=== PATIENT | female | born 1965 | race American Indian/Alaskan Native ===

== ENCOUNTER 2021-05-08 13:39 | Outpatient (CLI) | payer OTHER ==
[2021-05-08] MEDS ORDERED: LIDOCAINE (4%) 40 MG/ML TOPICAL SOLN 50 ML BOTTLE TP ONE (13:43)
== END 2021-05-08 13:40 | disposition home or self-care (01) ==
LOC: WOUND 13:39
PROVIDERS: ATTEND Surgery
DX: R21 Rash and other nonspecific skin eruption (principal); B35.3 Tinea pedis; I11.0 Hypertensive heart disease with heart failure; I50.9 Heart failure, unspecified; Z98.51 Tubal ligation status; Z87.891 Personal history of nicotine dependence
CPT/HCPCS: 99205; G0463

== ENCOUNTER 2021-09-11 05:47 | Day surgery (SDC) | payer OTHER ==
[2021-09-11] MEDS ORDERED: ceFAZolin/Water 2 GM/20 ML 2 GM/20 ML SYRINGE IV NR (06:00)
[2021-09-11] MEDS ORDERED: SODIUM CHLORIDE 0.9% 1000 ML 1,000 ML ONE (06:23)
[2021-09-11] MEDS ORDERED: BACTERIOSTATIC SODIUM CHLORIDE 0.9% 30 ML VIAL INFILTRATI ONE (06:39)
[2021-09-11] MEDS ORDERED: SODIUM CHLORIDE 0.9% 100 ML ONE (07:10)
[2021-09-11] MEDS ORDERED: propofoL 200 MG/20 ML VIAL IV ONE (07:11)
[2021-09-11 07:12] LABS: Mean Corpuscular HGB Conc 29 % (30-34); Mean Corpuscular Volume 78 fl (79-97); Platelet Count 182 K/mm3 (140-440); Red Blood Count 4.45 M/mm3 (3.65-5.03); Red Cell Distribution Width 19.1 % (13.2-15.2)
[2021-09-11] MEDS ORDERED: BUPIVACAINE/PF (0.5%) 5 MG/1 ML 30 ML VIAL INFILTRATI ONE (07:14)
[2021-09-11] MEDS ORDERED: SODIUM CHLORIDE P/F VIAL 10 ML 0 ML ONE (07:14)
[2021-09-11] MEDS ORDERED: LIDOCAINE (1%) 10 MG/1 ML VIAL 20 ML MDV ONE (07:14)
[2021-09-11] MEDS ORDERED: HEPARIN 10,000 UNITS/10 ML VIAL ONE (07:14)
[2021-09-11] MEDS ORDERED: SODIUM CHLORIDE 0.9% 250ML 0 ML ONE (07:15)
[2021-09-11] MEDS ORDERED: rifAMPin 600 MG VIAL ONE (07:15)
[2021-09-11] MEDS ORDERED: SODIUM CHLORIDE 0.9% 500 ML 500 ML ONE (07:15)
[2021-09-11 07:17] LABS: Hematocrit 34.9 % (30.3-42.9)
[2021-09-11 07:29] LABS: Calcium 8.2 mg/dL (8.4-10.2)
[2021-09-11] MEDS ORDERED: HYDROmorphone 1 MG/1 ML INJ IV PRN ×2 (07:43)
--- NOTE | 2021-09-11 07:45 | Anesthesia Day of Surgery ---
Anesthesia Day of Surgery - Day of Surgery Patient Examined: Yes Patient H&P Reviewed: Yes Patient is NPO: Yes Beta Blockers: Yes
--- NOTE | 2021-09-11 07:49 | Anesthesia Consultation ---
Anesthesia Consult and Med Hx Date of service: 09/11/21 - Airway Anesthetic Teeth Evaluation: Chipped, Caps ROM Head & Neck: Adequate Mental/Hyoid Distance: Adequate Mallampati Class: Class II Intubation Access Assessment: Good - Pre-Operative Health Status ASA Pre-Surgery Classification: ASA4 Proposed Anesthetic Plan: General - Pulmonary Hx Smoking: Yes (STOPPED SMOKING 10 YEARS AGO) Hx Respiratory Symptoms: Yes (RVSP 67 mmHg) SOB: Yes - Cardiovascular System Hx Hypertension: Yes (Orthopnea; gets tired easily when walks) Hx Coronary Artery Disease: No ([id number] SNT normal; EF 31%) Hx Heart Attack/AMI: No (CHF; [id number] ECHO EF 35-40%) Hx Valvular Heart Disease: Yes (Severe MR and TR) - Central Nervous System Hx Psychiatric Problems: No - Gastrointestinal Hx Gastroesophageal Reflux Disease: Yes (Occasional dietary) - Endocrine Hx Renal Disease: Yes Hx End Stage Renal Disease: Yes (Last HD yesterday) - Hematic Hx Anemia: Yes (IRON INFUSIONS) - Other Systems Hx Alcohol Use: Yes Hx Cancer: No
[2021-09-11] MEDS ORDERED: ePHEDrine SULFATE 50 MG/1 ML INJ ONE ×2 (07:51→09:11)
[2021-09-11] MEDS: SODIUM CHLORIDE 0.9% 1000 ML 1,000 ML IV SCH (08:00)
[2021-09-11] MEDS ORDERED: MIDAZOLAM 2 MG/2 ML INJ ONE (08:07)
[2021-09-11] MEDS: SODIUM CHLORIDE 0.9% IRR 1,500 ML BOTTLE IR ONE (09:00)
[2021-09-11] MEDS: SODIUM CHLORIDE 0.9% IRR 500 ML BOTTLE IR ONE (09:00)
[2021-09-11] MEDS: BUPIVACAINE/PF (0.5%) 5 MG/1 ML 30 ML VIAL INFILTRATI ONE (09:00)
[2021-09-11] MEDS ORDERED: ONDANSETRON 4 MG/2 ML INJ IV PRN (09:00)
[2021-09-11] MEDS: HEPARIN 10,000 UNITS/10 ML VIAL IV ONE (09:00)
[2021-09-11] MEDS ORDERED: PHENYLEPHRINE/NS 1,000 MCG/10 ML SYRINGE (OR USE) IV ONE (09:02)
[2021-09-11] MEDS ORDERED: PHENYLEPHRINE 10 MG/1 ML INJ SDV ONE (09:02)
[2021-09-11] MEDS ORDERED: fentaNYL 100 MCG/2 ML INJ ONE (09:29)
[2021-09-11] MEDS ORDERED: ONDANSETRON 4 MG/2 ML INJ ONE (09:53)
--- NOTE | 2021-09-11 10:25 | Short Stay Summary ---
Short Stay Documentation Date of service: 09/11/21 Narrative H&P: See H&P - History H&P: obtained from office - Allergies and Medications Current Medications: Allergies Sulfa (Sulfonamide Antibiotics) Allergy (Severe, Verified 08/30/21 14:34) Swelling prednisone Adverse Reaction (Verified 09/11/21 08:00) Unknown Home Medications Medication Instructions Recorded Confirmed Last Taken Type Ergocalciferol(Vitamin D2)(Nf) 5,000 unit PO 1XW 08/30/21 08/30/21 Unknown History [Vitamin D (Nf)] Furosemide [Lasix] 40 mg PO DAILY 08/30/21 08/30/21 Unknown History Isosorbide Mononitrate [Isosorbide 30 mg PO DAILY 08/30/21 08/30/21 Unknown History Mononitrate ER] carvediloL [Coreg] 12.5 mg PO BID 08/30/21 08/30/21 Unknown History metOLazone [Zaroxolyn] 5 mg PO 1XW 08/30/21 08/30/21 Unknown History Active Medications Hydromorphone HCl (Hydromorphone 1 Mg/1 Ml Inj) 0.25 mg IV Q10MIN PRN PRN Reason: Pain, Moderate (4-6) Stop: 09/11/21 23:00 Hydromorphone HCl (Hydromorphone 1 Mg/1 Ml Inj) 0.5 mg IV Q10MIN PRN PRN Reason: Pain , Severe (7-10) Stop: 09/11/21 23:00 Cefazolin Sodium (Ancef/Sterile Water 2 Gm/20 Ml) 2 gm in 20 mls @ 80 mls/hr IV PREOP NR; Protocol Stop: 09/11/21 23:14 Sodium Chloride (Nacl 0.9% 1000 Ml) 1,000 mls @ 42 mls/hr IV DIRECT EDDA Ondansetron HCl (Ondansetron 4 Mg/2 Ml Inj) 4 mg IV ONCE PRN PRN Reason: Nausea And Vomiting Stop: 09/11/21 12:00 - Brief post op/procedure progress note Date of procedure: 09/11/21 Pre-op diagnosis: End-Stage Renal Disease Post-op diagnosis: same Procedure: 1. Creation of Left Brachiocephalic Arteriovenous Fistula Anesthesia: GETA Surgeon: RUDDY FLORES Estimated blood loss: minimal Pathology: none Condition: stable - Disposition Condition at discharge: Good Short Stay Discharge Plan Activity: other (No heavy lifting with left arm for 2 weeks. Use stress ball with left hand as often as possible.) Wound: open to air, keep clean and dry, other (Okay to wash the left arm wound with soap and water but do not soak in water for 2 weeks.) Follow up with: RUDDY FLORES MD [Staff Physician] - 14 Days Prescriptions: HYDROcodone/APAP 5-325 [[place] 5/325] 1 each PO Q4HR PRN #30 tablet PRN Reason: Pain
--- NOTE | 2021-09-11 10:27 | Operative Report ---
Operative Report Operative Report: Date of procedure: 09/11/2021 Pre-operative diagnosis: End-Stage Renal Disease Post-operative diagnosis: End-Stage Renal Disease Procedure(s): Creation of Left Brachial Artery to Cephalic Vein Arteriovenous Fistula Surgeon: Hao Carballo MD Water Softener Installer: None Anesthesia: Regional/MAC EBL: Minimal Counts: Correct Complications: None Condition: Stable Findings: Successful creation of left brachiocephalic arteriovenous fistula with palpable thrill and palpable radial pulse at the completion of the case. Specimen: None Indications: The patient is a 56-year-old female with history of end-stage renal disease who is currently on hemodialysis through a right internal jugular permacath. She is in need of permanent dialysis access and was found to be a suitable candidate for creation of an arteriovenous fistula. She was given the risk, benefits, and alternative procedures and consented to the procedure. Description of Procedure: The patient was brought to the operating room and laid in supine position. Once general endotracheal anesthesia was achieved her left arm was prepped and draped in normal sterile fashion. A transverse incision was then made and carried down to the cephalic vein using sharp dissection. The vein was dissected out both proximally and distally and suture ligated and divided distally. I flushed the vein with heparinized saline and flow was controlled with a bulldog clamp. I then dissected out the brachial artery through this incision circumferentially both proximal and distal and controlled the artery with vessel loops. I systemically heparinized the patient with 3000 units of heparin IV and used angled DeBakey clamps to control flow through the artery. I created an arteriotomy using an 11 blade and Chand scissors. I created an end to side anastomosis between the cephalic vein and brachial artery using a 6-0 Prolene in running fashion. Prior to completing the anastomosis I flashed the artery both proximally and distally and then flushed the anastomosis with heparinized saline to remove any debris. I then completed the anastomosis and removed all clamps allowing flow into the fistula which had an adequate thrill. I achieved hemostasis with a combination of Quick Clot and electrocautery. Once hemostasis had been achieved I closed the wound in 2 layers using a 3-0 Vicryl in a running fashion in the deep dermal layer and a 4-0 Monocryl in running fashion in the subcuticular layer. I then dressed the wound with Dermabond. The patient tolerated the procedure well. All sponge, needle, and instrument counts were correct. The patient was taken to the recovery area in stable condition.
[2021-09-11 13:36] VITALS: BP 111/67
--- NOTE | 2021-09-11 14:20 | Post Anesthesia Evaluation ---
- Post Anesthesia Evaluation Patient Participated: Yes Airway Patent: Yes Stable Respiratory Function: Yes Nausea/Vomiting: No Temp > 96.8F: Yes Pain Manageable: Yes Adequeate Hydration: Yes Anesthesia Complications: No Block Receding Appropriately: Not Applicable Patient on Ventilator: No
== END 2021-09-11 12:30 | disposition home or self-care (01) ==
LOC: OR 05:47
PROVIDERS: ATTEND Surgery Vascular Surgery
DX: I12.0 Hypertensive chronic kidney disease with stage 5 chronic kidney disease or end stage renal disease (principal); N18.6 End stage renal disease; Z99.2 Dependence on renal dialysis; K21.9 Gastro-esophageal reflux disease without esophagitis; I34.0 Nonrheumatic mitral (valve) insufficiency; I36.1 Nonrheumatic tricuspid (valve) insufficiency; Z87.891 Personal history of nicotine dependence; Z79.899 Other long term (current) drug therapy; Z98.51 Tubal ligation status; Z88.2 Allergy status to sulfonamides; Z98.890 Other specified postprocedural states
CPT/HCPCS: 36415; 36818; 80048; 85027; J0690; J1644; J2250; J2370; J2405; J2704; J3010; J3490; J7030; J7040; J7120; Q0162; J7050